=== PATIENT | male | born 1945 | race Hispanic/Latino ===

== ENCOUNTER 2016-12-11 19:02 | Emergency (ER) | payer MEDICARE ==
[2016-12-11 19:02] VITALS: BMI 22.1
[2016-12-11] MEDS ORDERED: Sodium Chloride 0.9% 1,000 ML IV ONE (19:18)
--- NOTE | 2016-12-11 19:18 | C.PDOC ---
History Of Present Illness The patient presents to the ED vis [facility] for evaluation after he was found walking in the street with an unsteady gait [employer]. Patient states he was on his way to get some coffee. Contrary to triage notes, patient is currently awake, alert and oriented X3 in ED, denies any physical complaints, and wishes to go home. Time Seen by Provider: 12/11/16 19:18 Chief Complaint (Nursing): Altered Mental Status History Per: Patient, EMS History/Exam Limitations: None Onset/Duration Of Symptoms: Unknown Onset Of Symptoms: Cannot Confirm Onset Current Symptoms Are (Timing): Better Usual Baseline: Alert Oriented Exacerbating Factor(s): Unknown Use Of Anticoag/Antiplatelets: Unknown Speech Is: Normal Severity: Mild Pain Scale Rating Of: 3 Recent travel outside of the [place]: No Additional History Per: Patient, EMS Associated Symptoms: denies: Headache, Disoriented, Confused, Trouble Thinking, Weakness Past Medical History Reviewed: Historical Data, Nursing Documentation, Vital Signs Vital Signs: Last Vital Signs Temp 98.4 F 12/11/16 19:13 Pulse 70 12/11/16 19:13 Resp 18 12/11/16 19:13 BP 134/71 12/11/16 19:13 Pulse Ox 98 12/11/16 21:25 - Medical History PMH: No Chronic Diseases Surgical History: No Surg Hx Family History: States: No Known Family Hx - Social History Hx Alcohol Use: No Hx Substance Use: No - Immunization History Hx Tetanus Toxoid Vaccination: No Hx Influenza Vaccination: No Hx Pneumococcal Vaccination: No Review Of Systems Constitutional: Negative for: Fever, Chills Eyes: Negative for: Vision Change Cardiovascular: Negative for: Chest Pain, Palpitations Respiratory: Negative for: Cough, Shortness of Breath Gastrointestinal: Negative for: Nausea, Vomiting, Abdominal Pain Musculoskeletal: Negative for: Neck Pain, Arm Pain, Back Pain Skin: Negative for: Rash, Lesions, Jaundice, Bruising Neurological: Negative for: Weakness, Numbness Physical Exam - Physical Exam Appears: Non-toxic, No Acute Distress Skin: Warm, Dry Head: Normacephalic Eye(s): bilateral: Normal Inspection Oral Mucosa: Moist Neck: Supple Chest: Symmetrical, No Deformity, No Tenderness Cardiovascular: Rhythm Regular, No Murmur Respiratory: No Rales, No Rhonchi, No Wheezing Back: No Vertebral Tenderness Extremity: Normal ROM, Capillary Refill (less than 2 seconds ) Neurological/Psych: Oriented x3, Normal Speech, Normal Cognition, No Romberg Gait: Steady ED Course And Treatment - Laboratory Results Result Diagrams: 12/11/16 19:30 12/11/16 19:30 ECG: Interpreted By Me, Viewed By Me ECG Rhythm: Sinus Rhythm (55), 1st Degree HB (lahb, unchanged from 10/09/16), Nonspecific Changes O2 Sat by Pulse Oximetry: 98 (on RA) Pulse Ox Interpretation: Normal - Radiology CXR: Interpreted by Me, Viewed By Me CXR Interpretation: No: Infiltrates, Fracture, Pnemothorax - CT Scan/US CT Head Other Rad Studies (CT/US): Interpreted By Me, Read By Radiologist, Radiology Report Reviewed CT/US Interpretation: EXAM: CT Head Without Intravenous Contrast. CLINICAL HISTORY: 71 years old, male; Signs and symptoms; Altered mental status/memory loss and dizziness;. Confusion or disorientation; Additional info: AMS. TECHNIQUE: Axial computed tomography images of the head/brain without intravenous contrast. All CT scans at. this facility use one or more dose reduction techniques, viz.: automated exposure control; ma/kV. adjustment per patient size (including targeted exams where dose is matched to indication; i.e. head);. or iterative reconstruction technique. EXAM DATE/TIME: 2016 7:19 PM. COMPARISON: There are no prior studies for comparison. FINDINGS : Brain: There is prominence of sulci, gyri and ventricles. There is no midline shift. There are no intraaxial. or extra axial mass lesions or areas of hemorrhage. Rockwell-white differentiation is maintained. Ventricles: See above. Bony structures: Cranial vault is intact. Soft tissues: unremarkable. Sinuses: There is no acute sinusitis. Ears and mastoids: Middle ears and mastoids unremarkable. Orbits: Orbital contents are unremarkable. IMPRESSION: No intracranial abnormality Progress Note: labs, EKG, CT Head, and CXR ordered. Patient received IV fluids. NIHSS Stroke Scale - Date/Time Evaluation Performed Date Performed: 12/11/16 When Was NIHSS Performed: Baseline - How Severe is the Stoke Level of Consciousness: 0=Alert LOC to Questions: 0=Both comments correct LOC to commands: 0=Obeys both correctly Best Gaze: 0=Normal Visual: 0=No visual loss Facial: 0=Normal Motor Arm - Left: 0=No drift Motor Arm - Right: 0=No drift Motor Leg - Left: 0=No drift Motor Leg - Right: 0=No drift Limb Ataxia: 0=Absent Sensory: 0=Normal Best Language: 0=No aphasia Dysarthia: 0=Normal articulation Extinction & Inattention (Neglect): 0=Normal, no object Score: 0 Severity Of Stroke: 0= No Stroke Disposition Discussed With Dr.: Asher Banks Comment: accepted the pt on his service and took over the care at 9:47 PM Doctor Will See Patient In The: Hospital Counseled Patient/Family Regarding: Studies Performed, Diagnosis - Disposition Disposition: HOSPITALIZED Disposition Time: 19:18 Condition: FAIR Forms: [employer] (Danish) - POA Present On Arrival: Poor Glycemic Control - Clinical Impression Clinical Impression: Dizziness, Ambulatory dysfunction - Scribe Statement The provider has reviewed the documentation as recorded by the Scribe (Erica Banks) Provider Attestation: All medical record entries made by the Scribe were at my direction and personally dictated by me. I have reviewed the chart and agree that the record accurately reflects my personal performance of the history, physical exam, medical decision making, and the department course for this patient. I have also personally directed, reviewed, and agree with the discharge instructions and disposition. Decision To Admit - Pt Status Changed To: Hospital Disposition Of: Observation - . Bed Request Type: Regular Admitting Physician: Asher Banks Patient Diagnosis: Dizziness, Ambulatory dysfunction
[2016-12-11 19:34] LABS: BASO # 0.1 K/uL (0.0-0.2); BASO % 0.7 % (0.0-2.0); EOS # 0.2 K/uL (0.0-0.7); EOS % 2.5 % (0.0-4.0); HEMATOCRIT 42.9 % (35.0-51.0); LYMPH % 20.3 % (20.0-40.0); MEAN CELL VOLUME 90.8 fL (80.0-94.0); MEAN CORPUSCULAR HEMOGLOBIN 30.7 pg (27.0-31.0); MEAN CORPUSCULAR HGB CONC 33.8 g/dL (33.0-37.0); MEAN PLATELET VOLUME 7.9 fL (7.2-11.7); MONO # 0.8 K/uL (0.0-0.8); MONO % 8.2 % (0.0-10.0); RED CELL DISTRIBUTION WIDTH 15.8 % (11.5-14.5); WHITE BLOOD COUNT 9.8 K/uL (4.8-10.8)
[2016-12-11] MEDS ORDERED: Sodium Chloride 0.9% 1,000 ML ONE (19:38)
[2016-12-11 19:41] LABS: VENOUS BLOOD GAS BASE EXCESS 3.2 mmol/L (0.0-2.0); VENOUS BLOOD GAS PCO2 42 mmHg (40-60); VENOUS BLOOD PH 7.43 (7.32-7.43)
[2016-12-11 19:44] LABS: CHLORIDE 105 mmol/L (98-107); INR 0.9; POTASSIUM 4.2 mmol/L (3.6-5.2); SODIUM 140 mmol/L (132-148)
[2016-12-11 19:46] LABS: ALB/GLOB RATIO 1.2 (1.0-2.1); AST/SGOT 27 U/L (17-59); BILIRUBIN,TOTAL 0.5 mg/dL (0.2-1.3); CARBON DIOXIDE 24 mmol/L (22-30); GFR AFRICAN-AMERICAN > 60
[2016-12-11 19:47] LABS: ALCOHOL SERUM < 10 mg/dl (0-10); ALKALINE PHOSPHATASE 86 U/L (38-126); ALT/SGPT 35 U/L (21-72); BLOOD UREA NITROGEN 17 mg/dL (9-20); CALCIUM 9.4 mg/dl (8.6-10.4); GLUCOSE,RANDOM 115 mg/dL (75-110)
[2016-12-11] MEDS ORDERED: Bacitracin 500 Units/gm Oint Foilpak UD ONE (20:04)
--- NOTE | 2016-12-11 20:07 | CT ---
EXAM: CT Head Without Intravenous Contrast CLINICAL HISTORY: 71 years old, male; Signs and symptoms; Altered mental status/memory loss and dizziness; Confusion or disorientation; Additional info: AMS TECHNIQUE: Axial computed tomography images of the head/brain without intravenous contrast. All CT scans at this facility use one or more dose reduction techniques, viz.: automated exposure control; ma/kV adjustment per patient size (including targeted exams where dose is matched to indication; i.e. head); or iterative reconstruction technique. EXAM DATE/TIME: 12/11/2016 7:19 PM COMPARISON: There are no prior studies for comparison. FINDINGS: Brain: There is prominence of sulci, gyri and ventricles. There is no midline shift. There are no intra-axial or extra axial mass lesions or areas of hemorrhage. Rockwell-white differentiation is maintained. Ventricles: See above. Bony structures: Cranial vault is intact. Soft tissues: unremarkable Sinuses: There is no acute sinusitis. Ears and mastoids: Middle ears and mastoids unremarkable. Orbits: Orbital contents are unremarkable. IMPRESSION: No intracranial abnormality
[2016-12-11 22:18] VITALS: BP 133/81; PULSE 94; RESP 20; TEMP 97.5; O2SAT 97
--- NOTE | 2016-12-12 10:18 | RAD ---
HISTORY: AMS COMPARISON: None available. TECHNIQUE: Chest, one view. FINDINGS: LUNGS: No focal consolidation. Please note that chest x-ray has limited sensitivity for the detection of pulmonary masses. PLEURA: No significant pleural effusion identified. No definite pneumothorax . CARDIOVASCULAR: Heart size appears within normal limits. OSSEOUS STRUCTURES: Degenerative changes. VISUALIZED UPPER ABDOMEN: Unremarkable. OTHER FINDINGS: None. IMPRESSION: No focal consolidation, significant pleural effusion, or definite pneumothorax identified.
--- NOTE | 2016-12-12 20:51 | CARD ---
APPROVED REPORT EKG Measurement Heart [id number] <Conclusion> Sinus bradycardia with 1st degree AV block Left anterior fascicular block Abnormal ECG
== END 2016-12-11 22:18 | disposition home or self-care (01) ==
LOC: C.ER 19:02
DX: R42 Dizziness and giddiness (principal)
CPT/HCPCS: 70450; 71010; 80053; 82140; 82803; 83690; 84484; 85025; 85610; 85730; 87040; 93005; 96360; 99285; G0480; J7040